=== PATIENT | female | born 1985 | race Two or more races ===

== ENCOUNTER → 2023-10-11 | Emergency (ER) | payer OTHER ==
[~2023-10-11] VITALS: Ht 167.6 cm; Wt 93.4 kg
[2023-10-11 14:47] LABS: HEMATOCRIT 32.3 % (36.0-45.00); HEMOGLOBIN 11.3 g/dL (12.0-15.00); MEAN CELL VOLUME 89.3 fL (80.00-100.00); MEAN CORPUSCULAR HEMOGLOBIN 31.2 pg (27.00-32.0); MEAN CORPUSCULAR HGB CONC 34.9 g/dl (32.0-36.0); PLATELET COUNT 417 K/uL (150-450); RED BLOOD COUNT 3.62 M/uL (4.00-6.00); RED CELL DISTRIBUTION WIDTH 13.3 % (11.5-14.5)
[2023-10-11 15:02] LABS: URINE APPEARANCE Clear; URINE BILIRRUBIN Negative (NEGATIVE); URINE BLOOD Negative; URINE COLOR Yellow; URINE GLUCOSE Negative (NEGATIVE); URINE LEUKOCYTE Trace; URINE NITRATE Negative; URINE PROTEIN Negative (NEGATIVE); URINE UROBILINOGEN 0.2 E.U./dl
[2023-10-11 15:03] LABS: URINE RBC 6.6 uL (0.0-20.8); URINE WBC 3.3 uL (0.0-23.2)
[2023-10-11 15:11] LABS: URINE EPITHELIAL CELLS 1.2 uL (0.0-38.8)
[2023-10-11 15:23] LABS: CALCIUM 9.1 mg/dL (8.5-10.1); CREATININE SERUM 0.6 mg/dL (0.55-1.02); GFR 110.72; POTASSIUM 4.23 mEq/L (3.5-5.1)
== END | disposition left against medical advice (07) ==
LOC: ER 13:02
PROVIDERS: Emergency Medicine
DX: R10.9 Unspecified abdominal pain (principal); Z93.4 Other artificial openings of gastrointestinal tract status; Z85.038 Personal history of other malignant neoplasm of large intestine